=== PATIENT | female | born 2000 | race Caucasian/White ===

== ENCOUNTER 2024-05-13 17:51 | Emergency (ER) | payer OTHER ==
[2024-05-13 18:57] LABS: Specific Gravity 1.013 (1.005-1.030)
[2024-05-13 18:59] LABS: Specific Gravity 1.013 (1.005-1.030); Urine Bacteria <20 /HPF (<20); Urine Bilirubin NEGATIVE (Negative); Urine Blood Negative (Negative); Urine Clarity Turbid (Clear); Urine Color Yellow (Yellow); Urine Culture Reflex Order NOT NEEDED; Urine Glucose NEGATIVE (Negative); Urine Ketones NEGATIVE (Negative); Urine Microscopic Reflex YN ORDER UMIC; Urine Mucus Slight /HPF (None Seen); Urine Nitrite NEGATIVE (Negative); Urine Protein NEGATIVE (Negative); Urine RBC <5 /HPF (None Seen); Urine Urobilinogen Normal (Normal); Urine WBC <5 /HPF (<5); Urine pH 7.5 (5.0-7.0)
[2024-05-13] MEDS ORDERED: dexAMETHasone 10 MG/ML VIAL ONE (19:10)
[2024-05-13] MEDS ORDERED: CEFTRIAXONE 2000 MG/VIAL ONE (19:10)
[2024-05-13 19:11] LABS: Absolute Basophils 0.1 K/uL (0-0.5); Absolute Eosinophils 0.1 K/uL (0-0.5); Absolute Lymphocytes (CBC) 2.5 K/uL (0.7-4.9); Absolute Monocytes 0.5 K/uL (0.1-1.3); Absolute Neutrophil 4.4 K/uL (1.8-8.0); Basophils % 0.8 % (0-1.3); Eosinophils % 1.5 % (0-4.4); Hematocrit 36.5 % (36.0-45.0); Hemoglobin 12.9 g/dL (12.0-15.0); Lymphocytes % 32.6 % (15.3-44.8); MCHC 35.4 g/dL (32.0-36.0); MCV 87.6 fL (80-100); MPV 6.9 fL (7.6-11.3); Monocytes % 6.9 % (3.3-12.3); Neutrophils % 58.2 % (41.7-73.7); Nucleated Red Blood Cells % 0.1 % (0-0); Platelets 328 thou/uL (152-406); RBC Red Blood Cell Count 4.16 M/uL (3.86-4.86); Red Cell Distribution Width 13.1 % (12.1-15.2)
[2024-05-13] MEDS ORDERED: CLINDAMYCIN 900MG/D5W 900 MG/50 ML IVPB IV ONE (19:11)
[2024-05-13] MEDS ORDERED: NA CHLORIDE 0.9% 1,000 ML ONE (19:11)
[2024-05-13 19:57] LABS: Albumin 3.6 g/dL (3.4-5.0); Albumin/Globulin Ratio 1.2 (1.1-1.8); Anion Gap 9.6 mEq/L (5.0-15.0); Bilirubin Total 0.2 mg/dL (0.2-1.0); Globulin 3.1 g/dL (2.3-3.5); Potassium 3.6 mEq/L (3.5-5.1); Protein, Total 6.7 g/dL (6.4-8.2)
--- NOTE | 2024-05-13 20:23 | RAD REPORT ---
EXAM: CT Soft Tissue Neck W/Contr INDICATION: Pain;Sore throat;Swelling TECHNIQUE: Helical CT examination of the neck with IV contrast. Sagittal and coronal reformations wer e generated. This exam was performed according to our departmental dose-optimization program, which includes automated exposure control, adjustment of the mA and/or kV according to patient size and/or use of iterative reconstruction technique. COMPARISON: None. FINDINGS: Mucosal spaces: Nasopharynx, oropharynx, oral cavity, larynx and hypopharynx are normal. No suspiciou s masses. Epiglottis is normal in configuration. True vocal cords cords are normally situated. Piriform sinuses are well-aerated. Lymph Nodes: Solitary enlarged right level 2A lymph node, measuring 1.4 cm in short axis. Mild adjace nt fat stranding, as well as mild swelling of the overlying right sternocleidomastoid muscle.. Salivary Glands: Unremarkable. Thyroid Gland: Normal Included Intracranial Structures: Normal Included Orbits: Normal Paranasal Sinuses: Predominantly clear Tympanomastoid Cavities: Normal Vascular Structures: Normal Osseous Structures: No acute osseous abnormality. Included Lung Apices: Normal Subcutaneous ovoid 6 mm lesion along the left parotid region, may suggest a small sebaceous cyst. IMPRESSION: Solitary enlarged right level 2A lymph node measuring 1.4 cm in short axis, which could be infectious or inflammatory in nature.
--- NOTE | 2024-05-13 20:49 | ER ---
Nurse's Notes [facility] Name: Alicia Smith Age: 24 yrs Sex: Female : 2000 Arrival Date: 05/13/2024 Time: 17:51 Bed 7 Private MD: Diagnosis: Enlarged lymph nodes, unspecified;Streptococcal pharyngitis;Streptococcal tonsillitis Presentation: 05/13 18:06 Onset of symptoms was May 13, 2024. aa5 18:06 Chief complaint: Patient states: fatigue x 1 week and today sent here by urgent care aa5 for swollen lymph node to right side of neck. Coronavirus screen: At this time, the client does not indicate any symptoms associated with coronavirus-19. Ebola Screen: Patient denies travel to an Ebola-affected area in the 21 days before illness onset. Initial Sepsis Screen: Does the patient meet any 2 criteria? No. Patient's initial sepsis screen is negative. Does the patient have a suspected source of infection? No. Patient's initial sepsis screen is negative. Risk Assessment: Do you want to hurt yourself or someone else? Patient reports no desire to harm self or others. 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 - Infectious Disease History:: Denies. - Social history:: Smoking status: Patient denies any tobacco usage or history of. - Family history:: not pertinent. Screenin:15 [facility] ED Fall Risk Assessment (Adult) History of falling in the last 3 months, ph including since admission No falls in past 3 months (0 pts) Confusion or Disorientation No (0 pts) Intoxicated or Sedated No (0 pts) Impaired Gait No (0 pts) Mobility Assist Device Used No (0 pt) Altered Elimination No (0 pt) Score/Fall Risk Level 0 - 2 = Low Risk Oriented to surroundings, Maintained a safe environment, Hourly rounding (assess needs \T\ fall precautionary measures) done. Abuse screen: Denies threats or abuse. Denies injuries from another. Nutritional screening: No deficits noted. Tuberculosis screening: No symptoms or risk factors identified. Assessment: 18:49 General: Appears in no apparent distress. Behavior is calm, cooperative, appropriate ph for age, Denies fever. Pain: Complains of pain in right sternocleidomastoid and left sternocleidomastoid. Neuro: Level of Consciousness is awake, alert, obeys commands, Oriented to person, place, time, situation. Cardiovascular: Capillary refill < 3 seconds in bilateral fingers Patient's skin is warm and dry. Respiratory: Airway is patent Respiratory effort is even, unlabored, Respiratory pattern is regular, symmetrical. GI: No signs and/or symptoms were reported involving the gastrointestinal system. EENT: Denies pain when swallowing difficulty swallowing. Derm: Skin is pink, warm \T\ dry. 19:00 EENT: Cervical nodes enlarged on right. jj7 20:57 Reassessment: Patient appears in no apparent distress at this time. Patient and/or bm8 family updated on plan of care and expected duration. Pain level reassessed. Patient is alert, oriented x 3, equal unlabored respirations, skin warm/dry/pink. Patient denies pain at this time. Patient states feeling better. Patient states symptoms have improved. Vital Signs: 18:06 BP 151 / 102; Pulse 84; Resp 18 S; Temp 98.6(O); Pulse Ox 100% on R/A; Weight 65.77 kg aa5 (R); Height 5 ft. 7 in. (R); 19:00 BP 126 / 84; Pulse 83; Resp 17; Pulse Ox 100% ; jj7 20:13 BP 121 / 85; Pulse 77; Resp 18; Temp 98.6; Pulse Ox 100% ; Pain 0/10; bm8 20:57 BP 125 / 81; Pulse 75; Resp 17; Temp 98.6; Pulse Ox 100% ; Pain 0/10; bm8 18:06 Body Mass Index 22.71 (65.77 kg, 170.18 cm) aa5 20:13 Pain Scale: Adult bm8 20:57 Pain Scale: Adult bm8 [place] Com[place] Score: 20:13 Eye Response: spontaneous(4). Motor Response: obeys commands(6). Verbal Response: bm8 oriented(5). Total: 15. 20:57 Eye Response: spontaneous(4). Motor Response: obeys commands(6). Verbal Response: bm8 oriented(5). Total: 15. ED Course: 17:56 Patient arrived in ED. ra3 18:05 Arm band placed on. aa5 18:07 Triage completed. aa5 18:08 Mike Sanches, RN is Primary Nurse. bp 18:09 Dipak Youngblood MD is Attending Physician. maynor 18:16 Patient has correct armband on for positive identification. Bed in low position. Call ph light in reach. Side rails up X 1. Pulse ox on. NIBP on. 18:49 Initial lab(s) drawn, by me, sent to lab. Urine collected: clean catch specimen, Strep ph swab sent to lab. Inserted saline lock: 22 gauge in right antecubital area, using aseptic technique. Blood collected. Flushed with 10 mL NS. 18:50 No provider procedures requiring assistance completed. ph 18:50 PREGU Sent. ph 18:50 Urinalysis w/ reflexes Sent. ph 18:51 Comprehensive Metabolic Panel Sent. ph 18:51 CBC with Diff Sent. ph 18:51 Strep Sent. ph 19:00 Provided Education on: use of call lopez. jj7 19:42 CT Soft Tissue Neck W/contr In Process Unspecified. EDMS 20:23 Urine Culture Sent. vk 20:48 Attending Physician role handed off by Dipak Youngblood MD rn 20:48 Amari Lin MD is Attending Physician. rn 20:49 Joanne Alarcon MD is Referral Physician. rn 20:57 IV discontinued, intact, bleeding controlled, No redness/swelling at site. Pressure bm8 dressing applied. Administered Medications: 19:20 Drug: Decadron - Dexamethasone IVP 10 mg IVP once Route: IVP; Site: right antecubital; jj7 20:59 Follow up: Response: No adverse reaction bm8 19:20 Drug: Clindamycin IVPB 900 mg IVPB once over 30 mins; (mix in 50 mL) Route: IVPB; jj7 Infused Over: 30 mins; Site: right antecubital; 20:59 Follow up: Response: No adverse reaction; IV Status: Completed infusion; IV Intake: [id number] 19:21 Drug: NS 0.9% IV 1000 ml IV at 1000 ml once; to be given as a bolus over 60 minutes jj7 Route: IV; Rate: 1000 ml; Site: right antecubital; 20:30 Follow up: Response: No adverse reaction; IV Status: Completed infusion; IV Intake: bm8 1000ml 19:21 Drug: Rocephin IV 2 grams IV at per protocol once; Given slow IV push per pharmarcy jj7 instructions Route: IV; Rate: per protocol; Site: right antecubital; 20:59 Follow up: Response: No adverse reaction; IV Status: Completed infusion; IV Intake: bm8 100ml Medication: 18:16 VIS not applicable for this client. ph Intake: 20:30 IV: 1000ml; Total: 1000ml. bm8 20:59 IV: 50ml; Total: 1050ml. bm8 20:59 IV: 100ml; Total: 1150ml. bm8 Outcome: 20:49 Discharge ordered by . rn 20:57 Discharged to home ambulatory, with family, bm8 20:57 Condition: stable 20:57 Discharge instructions given to patient, family, Instructed on discharge instructions, follow up and referral plans. no drinking with medication, no driving heavy equipment, medication usage, safety practices, Demonstrated understanding of instructions, follow-up care, medications, Prescriptions given X 4, 21:00 Patient left the ED. bm8 Signatures: Dispatcher [employer] EDMS Dipak Youngblood MD MD cha Nieto, Roman, MD MD rn Calderon, Audri RN RN aa5 Amie Vicente RN RN ph Peltier, Brian, RN Perla David RN RN jjMaría Vuong Vivian vk McDonald, Brad RN RN bm8 Corrections: (The following items were deleted from the chart) 18:06 18:05 PSHx: None; aa5 aa5
--- NOTE | 2024-05-13 20:49 | EDPHYS ---
Physician Documentation [facility] Name: Alicia Smith Age: 24 yrs Sex: Female : 2000 Arrival Date: 05/13/2024 Time: 17:51 Bed 7 Private MD: ED Physician Amari Lin HPI: 05/13 19:16 This 24 yrs old Female presents to ER via Ambulatory with complaints of maynor swollen lymph node-sent by urgent care. 19:16 The patient or guardian complains of pain, swelling. The symptoms are located on the [facility] neck. Onset: The symptoms/episode began/occurred 3 day(s) ago. Context: The problem was sustained at an unknown location. Associated signs and symptoms: The patient has no apparent associated signs or symptoms. The pain does not radiate. Severity of symptoms: At their worst the symptoms were mild, in the emergency department the symptoms are unchanged. The patient has not experienced similar symptoms in the past. 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 - Infectious Disease History:: Denies. - Social history:: Smoking status: Patient denies any tobacco usage or history of. - Family history:: not pertinent. ROS: 19:16 Constitutional: Negative for fever, chills, and weight loss, Eyes: Negative for injury, maynor pain, redness, and discharge, ENT: Negative for injury, pain, and discharge, Cardiovascular: Negative for chest pain, palpitations, and edema, Respiratory: Negative for shortness of breath, cough, wheezing, and pleuritic chest pain, Abdomen/GI: Negative for abdominal pain, nausea, vomiting, diarrhea, and constipation, Back: Negative for injury and pain, : Negative for injury, bleeding, discharge, and swelling, MS/Extremity: Negative for injury and deformity, Skin: Negative for injury, rash, and discoloration, Neuro: Negative for headache, weakness, numbness, tingling, and seizure, Psych: Negative for depression, anxiety, suicide ideation, homicidal ideation, and hallucinations, Allergy/Immunology: Negative for hives, rash, and allergies, Endocrine: Negative for neck swelling, polydipsia, polyuria, polyphagia, and marked weight changes, Hematologic/Lymphatic: Negative for swollen nodes, abnormal bleeding, and unusual bruising, 19:16 Neck: Positive for pain with movement, pain at rest, swollen nodes, Exam: 19:16 Constitutional: This is a well developed, well nourished patient who is awake, alert, maynor and in no acute distress. Head/Face: Normocephalic, atraumatic. Eyes: Pupils equal round and reactive to light, extra-ocular motions intact. Lids and lashes normal. Conjunctiva and sclera are non-icteric and not injected. Cornea within normal limits. Periorbital areas with no swelling, redness, or edema. ENT: Nares patent. No nasal discharge, no septal abnormalities noted. Tympanic membranes are normal and external auditory canals are clear. Oropharynx with no redness, swelling, or masses, exudates, or evidence of obstruction, uvula midline. Mucous membranes moist. Chest/axilla: Normal chest wall appearance and motion. Nontender with no deformity. No lesions are appreciated. Cardiovascular: Regular rate and rhythm with a normal S1 and S2. No gallops, murmurs, or rubs. Normal PMI, no JVD. No pulse deficits. Respiratory: Lungs have equal breath sounds bilaterally, clear to auscultation and percussion. No rales, rhonchi or wheezes noted. No increased work of breathing, no retractions or nasal flaring. Abdomen/GI: Soft, non-tender, with normal bowel sounds. No distension or tympany. No guarding or rebound. No evidence of tenderness throughout. Back: No spinal tenderness. No costovertebral tenderness. Full range of motion. Skin: Warm, dry with normal turgor. Normal color with no rashes, no lesions, and no evidence of cellulitis. MS/ Extremity: Pulses equal, no cyanosis. Neurovascular intact. Full, normal range of motion. Neuro: Awake and alert, GCS 15, oriented to person, place, time, and situation. Cranial nerves II-XII grossly intact. Motor strength 5/5 in all extremities. Sensory grossly intact. Cerebellar exam normal. Normal gait. Psych: Awake, alert, with orientation to person, place and time. Behavior, mood, and affect are within normal limits. 19:16 Neck: External neck: swelling, that is mild, of the right sternocleidomastoid, Vital Signs: 18:06 BP 151 / 102; Pulse 84; Resp 18 S; Temp 98.6(O); Pulse Ox 100% on R/A; Weight 65.77 kg aa5 (R); Height 5 ft. 7 in. (R); 19:00 BP 126 / 84; Pulse 83; Resp 17; Pulse Ox 100% ; jj7 20:13 BP 121 / 85; Pulse 77; Resp 18; Temp 98.6; Pulse Ox 100% ; Pain 0/10; bm8 20:57 BP 125 / 81; Pulse 75; Resp 17; Temp 98.6; Pulse Ox 100% ; Pain 0/10; bm8 18:06 Body Mass Index 22.71 (65.77 kg, 170.18 cm) aa5 20:13 Pain Scale: Adult bm8 20:57 Pain Scale: Adult bm8 [place] Coma Score: 20:13 Eye Response: spontaneous(4). Motor Response: obeys commands(6). Verbal Response: bm8 oriented(5). Total: 15. 20:57 Eye Response: spontaneous(4). Motor Response: obeys commands(6). Verbal Response: bm8 oriented(5). Total: 15. MDM: 18:09 Medical Screening Exam initiated maynor 19:18 Differential diagnosis: Herpes Zoster Neck Contusion ADENOPATHY. Data reviewed: vital maynor signs, nurses notes, lab test result(s), radiologic studies, CT scan. Consideration of Admission/Observation Escalation of care including admission/observation considered. I considered the following discharge prescriptions or medication management in the emergency department Medications were administered in the Emergency Department. See MAR. Independent interpretation of the following test(s) in the Emergency Department CT Scan: My interpretation is CT SOFT NECK. Test considered but Not performed: Ultrasound NO USG. Historians other than the Patient: Family Member: FAMILY WELL INFORMED. Care significantly affected by the following chronic conditions:. Counseling: I had a detailed discussion with the patient and/or guardian regarding the historical points, exam findings, and any diagnostic results supporting the discharge/admit diagnosis, lab results, radiology results, the need for outpatient follow up, for definitive care, an ENT specialist. 20:48 Special discussion: I discussed with the patient/guardian in detail that at this point rn there is no indication for admission to the hospital. It is understood, however, that if the symptoms persist or worsen the patient needs to return immediately for re-evaluation. 05/13 18:13 Order name: Strep; Complete Time: 19:25 [facility] 05/13 18:13 Order name: CBC with Diff; Complete Time: 19:25 [facility] 05/13 18:13 Order name: Comprehensive Metabolic Panel; Complete Time: 20:48 [facility] 05/13 18:13 Order name: Urinalysis w/ reflexes; Complete Time: 19:25 [facility] 05/13 18:13 Order name: PREGU; Complete Time: 19:25 [facility] 05/13 19:26 Order name: Urine Culture [facility] 05/13 18:13 Order name: CT Soft Tissue Neck W/contr; Complete Time: 20:48 [facility] Administered Medications: 19:20 Drug: Decadron - Dexamethasone IVP 10 mg IVP once Route: IVP; Site: right antecubital; jj7 20:59 Follow up: Response: No adverse reaction bm8 19:20 Drug: Clindamycin IVPB 900 mg IVPB once over 30 mins; (mix in 50 mL) Route: IVPB; jj7 Infused Over: 30 mins; Site: right antecubital; 20:59 Follow up: Response: No adverse reaction; IV Status: Completed infusion; IV Intake: 10sity0 19:21 Drug: NS 0.9% IV 1000 ml IV at 1000 ml once; to be given as a bolus over 60 minutes jj7 Route: IV; Rate: 1000 ml; Site: right antecubital; 20:30 Follow up: Response: No adverse reaction; IV Status: Completed infusion; IV Intake: bm8 1000ml 19:21 Drug: Rocephin IV 2 grams IV at per protocol once; Given slow IV push per pharmarcy jj7 instructions Route: IV; Rate: per protocol; Site: right antecubital; 20:59 Follow up: Response: No adverse reaction; IV Status: Completed infusion; IV Intake: bm8 100ml Disposition Summary: 05/13/24 20:49 Discharge Ordered Notes: Location: Home rn Problem: new rn Symptoms: have improved rn Condition: Stable rn Diagnosis - Enlarged lymph nodes, unspecified rn - Streptococcal pharyngitis rn - Streptococcal tonsillitis rn Followup: [facility] - With: Private Physician - When: 2 - 3 days - Reason: Recheck today's complaints, Continuance of care, Re-evaluation by your physician Followup: [facility] - With: Joanne Alarcon MD - When: 2 - 3 days - Reason: Recheck today's complaints, Continuance of care, Re-evaluation by your physician Discharge Instructions: - Discharge Summary Sheet maynor - Strep Throat, Adult maynor - Strep Throat, Adult, [id number] [facility] - Lymphadenopathy [facility] Forms: - Medication Reconciliation Form rn - Antibiotic trademark attorney - Prescription Opioid Use rn - Patient Portal Instructions rn - Leadership Thank You Letter rn Prescriptions: - dexamethasone 4 mg Oral tablet - take 1 tablet ORAL route once daily; 4 tablet; Refills: 0, Product Selection [facility] Permitted - diclofenac sodium 50 mg Oral tablet, delayed release (enteric coated) - take 1 tablet ORAL route 3 times per day as needed for pain; 21 tablet; [facility] Refills: 0, Product Selection Permitted - Augmentin 875-125 mg Oral Tablet - take 1 tablet ORAL route every 12 hours for 10 days; 20 tablet; Refills: 0, [facility] Product Selection Permitted - Fluconazole 200 mg Oral tablet - take 1 tablet ORAL route once TAKE NEEDED FOR YEAST INFECTION X 1 DAY , [facility] REPEAT THE FOLLOWING WEEK NEEDED; 2 tablet; Refills: 0, Product Selection Permitted Signatures: Dispatcher [employer] EDDipak Portillo MD MD cha Nieto, Roman, MD MD rn Calderon, Audri, RN RN aa5 Perla Branhart RN RN jj7 Joel Casper RN bm8 Corrections: (The following items were deleted from the chart) 18:06 18:05 PSHx: None; marcelina hewitt 18:13 18:13 Soft Tissue Neck W/Contr+CT.RAD.BRZ ordered. EDMS EDMS
[2024-05-14 08:04] VITALS: TEMP 98.6; O2SAT 100
[2024-05-14 08:24] VITALS: BP 125/81
== END 2024-05-13 21:00 | disposition home or self-care (01) ==
LOC: ER 17:51
DX: J03.00 Acute streptococcal tonsillitis, unspecified (principal)
CPT/HCPCS: 96365; 87088; 85025; 81001; 87086; 36415; 81025; 87081; 80053; 70491; 96375; 99284; Q9967; J1100; J0696; J7030